=== PATIENT | male | born 1950 | race Caucasian/White ===

== ENCOUNTER 2019-06-18 19:51 | Inpatient (IN) ==
[2019-06-18 20:18] LABS: Basophils # 0.1 10*3/uL (0.0-0.2); Basophils % 0.8 % (0.0-0.8); Eosinophils # 0.2 10*3/uL (0.0-0.87); Eosinophils % 2.1 % (0.00-10.9); Hematocrit 54.9 VOL% (42.0-52.0); Hemoglobin 18.7 GM/DL (14.0-18.0); Immature Granulocytes % 0.2 %; Immature Granulocytes Absolute 0.02 #; Lymphocytes # 3.9 10*3/uL (1.4-4.0); Lymphocytes % 35.8 % (21.2-54.2); Mean Corpuscular HGB Conc 34.1 GM/DL (32-36); Mean Corpuscular Volume 84.9 FL (87-102); Mean Platelet Volume 10.2 FL (9.6-12.0); Monocytes % 6.9 % (1.7-12.7); Neutrophils % 54.2 % (38.7-73.9); Platelet Count 278 T/CUMM (130-400); Red Blood Count 6.47 MC/CUMM (3.8-5.5); Red Cell Distribution Width 12.7 % (9.3-17.3); White Blood Count 10.9 T/CUMM (4-12)
[2019-06-18 20:37] LABS: Albumin 3.8 G/DL (3.4-5.0); Bilirubin,Total 0.6 MG/DL (0.2-1.0); Calcium 9.3 MG/DL (8.5-10.1); Osmolality,Calculated 286.5 MOS/KG (273-304); Total Protein 7.8 G/DL (6.4-8.3)
[2019-06-18] MEDS ORDERED: ASPIRIN EC 325 MG TABLET PO STA (20:42)
[2019-06-18] MEDS ORDERED: NITROGLYCERIN SL 0.4 MG TABLET SL STA (20:42)
[2019-06-18] MEDS ORDERED: ENOXAPARIN 30 MG/0.3 ML SYRINGE SUBCUT STA (21:12)
[2019-06-18] MEDS ORDERED: NICOTINE 21 MG/24 HR PATCH TRANSDERM PRN (21:31)
[2019-06-18] MEDS ORDERED: ACETAMINOPHEN 325 MG TABLET PO PRN (21:31)
[2019-06-18] MEDS ORDERED: ONDANSETRON 4 MG/2 ML VIAL IV PRN (21:31)
[2019-06-18] MEDS ORDERED: diphenhydrAMINE CAP 25 MG CAPSULE PO PRN (21:31)
[2019-06-18] MEDS ORDERED: BISACODYL 5 MG TABLET PO PRN (21:31)
[2019-06-18] MEDS ORDERED: traZODone 50 MG TABLET PO PRN (21:31)
[2019-06-18] MEDS ORDERED: ENOXAPARIN 100 MG/ML SYRINGE SUBCUT ONE (21:56)
[2019-06-18] MEDS ORDERED: ENOXAPARIN 80 MG/0.8 ML SYRINGE SUBCUT STA (21:57)
[2019-06-18] MEDS ORDERED: ENOXAPARIN 100 MG/ML SYRINGE SUBCUT STA (21:58)
[2019-06-18] MEDS ORDERED: SODIUM CHLORIDE 0.9% 1,000 ML IV SCH (22:00)
[2019-06-18 22:15] LABS: Risk Ratio 5.65; Thyroid Stimulating Hormone 2.57 uIU/ml (0.358-3.74); VLDL CHOLESTEROL 30.4 MG/DL
[2019-06-18] MEDS: ATORVASTATIN 40 MG TABLET PO SCH (23:35)
[2019-06-19] MEDS: MORPHINE 4 MG/1 ML VIAL IV PRN ×2 (01:35→06:21)
[2019-06-19] MEDS ORDERED: HEPARIN 5,000 UNIT/1 ML VIAL IV PRN (04:15)
[2019-06-19] MEDS ORDERED: HEPARIN DRIP 25,000 UNITS/500 ML PREMIX IV SCH (04:30)
[2019-06-19] MEDS ORDERED: CLOPIDOGREL 300 MG TABLET PO ONE (05:00)
[2019-06-19] MEDS ORDERED: ASPIRIN 325 MG TABLET PO SCH (09:00)
[2019-06-19] MEDS ORDERED: NITROGLYCERIN SL 0.4 MG TABLET SL ONE ×2 (09:05→11:25)
[2019-06-19] MEDS ORDERED: NITROGLYCERIN SL 0.4 MG TABLET SL PRN (09:09)
[2019-06-19] MEDS: PANTOPRAZOLE 40 MG TABLET PO SCH (09:48)
[2019-06-19] MEDS ORDERED: ENOXAPARIN 80 MG/0.8 ML SYRINGE SUBCUT SCH (10:00)
[2019-06-19] MEDS ORDERED: MAGNESIUM SULF RIDER 2 GM in PREMIX 1 EACH IV PRN (10:54)
[2019-06-19] MEDS ORDERED: POTASSIUM CHLORIDE RIDER 10 MEQ in PREMIX 1 EACH IV PRN (10:54)
[2019-06-19] MEDS ORDERED: HEPARIN/NACL 0.9% 2 UNITS/ML 1,000 ML IV ONE (11:00)
[2019-06-19] MEDS ORDERED: LIDOCAINE 1% 20 ML VIAL ONE (11:03)
[2019-06-19] MEDS ORDERED: fentaNYL 100 MCG/2 ML VIAL ONE (11:05)
[2019-06-19] MEDS ORDERED: MIDAZOLAM 2 MG/2 ML VIAL ONE ×2 (11:05→11:35)
[2019-06-19] MEDS ORDERED: NITROGLYCERIN DRIP 50 MG/250 ML BOTTLE IV ONE (11:33)
[2019-06-19] MEDS ORDERED: EPTIFIBATIDE 20,000 MCG/10 ML VIAL ONE ×2 (11:35→11:42)
[2019-06-19] MEDS ORDERED: EPTIFIBATIDE 75 MG/100 ML BOTTLE IV ONE (11:35)
[2019-06-19] MEDS ORDERED: METOPROLOL TARTRATE 5 MG/5 ML VIAL IV ONE (11:39)
[2019-06-19 11:41] LABS: Apearance,Urine CLEAR (Clear); Bilirubin,Urine Negative (Negative); Blood, Urine Negative (Negative); Glucose,Urine (UA) 150 mg/dL (Negative); Ketones,Urine Negative (Negative); Mucus,Urine Occasional /LPF (Occasional); Nitrite,Urine Negative (Negative); Protein,Urine Negative; RBC,Urine 3 /HPF (0-4); Urine Color Yellow (Yellow); Urine Specific Gravity 1.049 (1.001-1.035); WBC,Urine <1 /HPF (0-6)
[2019-06-19] MEDS ORDERED: HEPARIN 5,000 UNIT/1 ML VIAL ONE (11:42)
[2019-06-19 12:11] LABS: Barbiturates Screen,Urine Negative (Negative); Benzodiazepines Screen,Urine Negative (Negative); Cannabinoid Screen,Urine Negative (Negative); Opiate Screen,Urine Positive (Negative); Phencyclidine Screen,Urine Negative (Negative)
[2019-06-19] MEDS ORDERED: TICAGRELOR 90 MG TABLET ONE (12:17)
[2019-06-19] MEDS ORDERED: ZALEPLON 5 MG CAPSULE PO PRN (13:03)
[2019-06-19] MEDS ORDERED: ACETAMINOPHEN/CODEINE 300-30 MG TABLET PO PRN (13:03)
[2019-06-19 14:00] LABS: Apearance,Urine CLEAR (Clear); Bilirubin,Urine Negative (Negative); Blood, Urine Negative (Negative); Glucose,Urine (UA) 50 mg/dL (Negative); Ketones,Urine 5 mg/dL (Negative); Mucus,Urine Occasional /LPF (Occasional); Nitrite,Urine Negative (Negative); Protein,Urine Negative; RBC,Urine 1 /HPF (0-4); Squamous Epithelial Cell,Urine Occasional /HPF (0-10); Urine Color Yellow (Yellow); Urine Specific Gravity > 1.060 (1.001-1.035); WBC,Urine <1 /HPF (0-6)
[2019-06-19] MEDS: TICAGRELOR 90 MG TABLET PO SCH (21:29)
[2019-06-19] MEDS: METOPROLOL TARTRATE 50 MG TABLET PO SCH (21:29)
[2019-06-19] MEDS: ATORVASTATIN 40 MG TABLET PO SCH (21:29)
[2019-06-20 06:06] LABS: Basophils # 0.1 10*3/uL (0.0-0.2); Basophils % 0.6 % (0.0-0.8); Eosinophils # 0.2 10*3/uL (0.0-0.87); Eosinophils % 2.3 % (0.00-10.9); Hematocrit 47.1 VOL% (42.0-52.0); Hemoglobin 16.1 GM/DL (14.0-18.0); Immature Granulocytes % 0.7 %; Immature Granulocytes Absolute 0.07 #; Lymphocytes # 2.2 10*3/uL (1.4-4.0); Lymphocytes % 21.6 % (21.2-54.2); Mean Corpuscular HGB Conc 34.2 GM/DL (32-36); Mean Corpuscular Volume 86.3 FL (87-102); Mean Platelet Volume 10.3 FL (9.6-12.0); Monocytes % 11.4 % (1.7-12.7); Neutrophils % 63.4 % (38.7-73.9); Platelet Count 211 T/CUMM (130-400); Red Blood Count 5.46 MC/CUMM (3.8-5.5); Red Cell Distribution Width 13.2 % (9.3-17.3); White Blood Count 10.3 T/CUMM (4-12)
[2019-06-20 06:19] LABS: Calcium 8.2 MG/DL (8.5-10.1); Osmolality,Calculated 277.7 MOS/KG (273-304)
[2019-06-20] MEDS: PANTOPRAZOLE 40 MG TABLET PO SCH (08:47)
[2019-06-20] MEDS: ASPIRIN EC 81 MG TABLET PO SCH (08:47)
[2019-06-20] MEDS: METOPROLOL TARTRATE 50 MG TABLET PO SCH ×2 (08:47→21:21)
[2019-06-20] MEDS: TICAGRELOR 90 MG TABLET PO SCH ×2 (08:47→21:21)
[2019-06-20] MEDS: TAMSULOSIN 0.4 MG CAPSULE PO SCH (13:11)
[2019-06-20] MEDS: ATORVASTATIN 40 MG TABLET PO SCH (21:21)
[2019-06-21] MEDS ORDERED: METOPROLOL SUCCINATE XL 25 MG TABLET PO SCH (09:00)
[2019-06-21] MEDS: PANTOPRAZOLE 40 MG TABLET PO SCH (11:00)
[2019-06-21] MEDS: TICAGRELOR 90 MG TABLET PO SCH (11:00)
[2019-06-21] MEDS: ASPIRIN EC 81 MG TABLET PO SCH (11:00)
[2019-06-21] MEDS: TAMSULOSIN 0.4 MG CAPSULE PO SCH (11:00)
[2019-06-21 12:27] VITALS: BP 125/94
== END 2019-06-21 12:20 | disposition home or self-care (01) | DRG 247 ==
LOC: N.ED 19:51 → SUATTDRO 21:39 → N.EDINP 21:39 → N.TELEN 22:24
PROVIDERS: ADMIT Family Medicine; ATTEND Internal Medicine
PROC: CLCCHCL (ICD-10-PCS; 2019-06-19 11:45)

== ENCOUNTER 2020-01-26 09:52 | Inpatient (IN) ==
[2020-01-26] MEDS ORDERED: SODIUM CHLORIDE 0.9% 1,000 ML IV STA (10:57)
[2020-01-26 11:01] LABS: Basophils % 0.2 % (0.0-0.8); Hematocrit 42.5 VOL% (42.0-52.0); Hemoglobin 13.9 GM/DL (14.0-18.0); Immature Granulocytes % 0.7 %; Immature Granulocytes Absolute 0.13 #; Lymphocytes # 1.1 10*3/uL (1.4-4.0); Lymphocytes % 5.8 % (21.2-54.2); Mean Corpuscular HGB Conc 32.7 GM/DL (32-36); Mean Corpuscular Volume 89.7 FL (87-102); Mean Platelet Volume 10.7 FL (9.6-12.0); Monocytes % 10.4 % (1.7-12.7); Neutrophils % 82.9 % (38.7-73.9); Platelet Count 153 T/CUMM (130-400); Red Blood Count 4.74 MC/CUMM (3.8-5.5); Red Cell Distribution Width 14.6 % (9.3-17.3); White Blood Count 18.5 T/CUMM (4-12)
[2020-01-26] MEDS ORDERED: cefTRIAXone 1,000 MG in SODIUM CHLORIDE 0.9% 100 ML IV STA (11:08)
[2020-01-26] MEDS ORDERED: ACETAMINOPHEN 500 MG TABLET PO STA (11:08)
[2020-01-26 11:26] LABS: Bilirubin,Total 1.8 MG/DL (0.2-1.0); Calcium 8.9 MG/DL (8.5-10.1); Osmolality,Calculated 272.4 MOS/KG (273-304); Total Protein 6.8 G/DL (6.4-8.3)
[2020-01-26 11:48] LABS: INR 1.3
[2020-01-26 12:25] LABS: Apearance,Urine Slightly Hazy (Clear); Bacteria,Urine Many /HPF (Few); Bilirubin,Urine Negative (Negative); Blood, Urine Moderate mg/dL (Negative); Glucose,Urine (UA) Negative (Negative); Ketones,Urine Negative (Negative); Mucus,Urine Moderate /LPF (Occasional); Nitrite,Urine Positive (Negative); Protein,Urine 30 MG/DL; RBC,Urine 3 /HPF (0-4); Urine Color Amber (Yellow); Urine Specific Gravity 1.019 (1.001-1.035); WBC,Urine 55 /HPF (0-6)
[2020-01-26] MEDS ORDERED: SODIUM CHLORIDE 0.9% 500 ML IV STA (12:49)
[2020-01-26] MEDS ORDERED: ONDANSETRON 4 MG/2 ML VIAL IV PRN (14:16)
[2020-01-26] MEDS ORDERED: GLUCAGON 1 MG VIAL IM PRN ×2 (14:16)
[2020-01-26] MEDS ORDERED: DEXTROSE 10% 250 ML BAG IV PRN (14:16)
[2020-01-26] MEDS ORDERED: DEXTROSE 50% 25 GM/50 ML VIAL IV PRN (14:16)
[2020-01-26] MEDS ORDERED: ACETAMINOPHEN 325 MG TABLET PO PRN (14:16)
[2020-01-26] MEDS ORDERED: SODIUM CHLORIDE 0.9% 700 ML IV SCH (14:30)
[2020-01-26] MEDS: INSULIN LISPRO 100 UNIT/ML SUBCUT SCH (20:50)
[2020-01-26] MEDS: TICAGRELOR 90 MG TABLET PO SCH (21:46)
[2020-01-26] MEDS: metFORMIN 500 MG TABLET PO SCH (21:46)
[2020-01-26] MEDS: ATORVASTATIN 40 MG TABLET PO SCH (21:46)
[2020-01-26] MEDS: ASPIRIN EC 81 MG TABLET PO SCH (21:46)
[2020-01-27 05:26] LABS: Basophils % 0.2 % (0.0-0.8); Eosinophils # 0.1 10*3/uL (0.0-0.87); Eosinophils % 0.5 % (0.00-10.9); Hematocrit 38.9 VOL% (42.0-52.0); Hemoglobin 12.9 GM/DL (14.0-18.0); Immature Granulocytes % 0.9 %; Immature Granulocytes Absolute 0.12 #; Lymphocytes # 1.3 10*3/uL (1.4-4.0); Lymphocytes % 9.7 % (21.2-54.2); Mean Corpuscular HGB Conc 33.2 GM/DL (32-36); Mean Corpuscular Volume 87.8 FL (87-102); Mean Platelet Volume 11.2 FL (9.6-12.0); Neutrophils % 80.7 % (38.7-73.9); Platelet Count 107 T/CUMM (130-400); Red Blood Count 4.43 MC/CUMM (3.8-5.5); Red Cell Distribution Width 14.4 % (9.3-17.3); White Blood Count 13.1 T/CUMM (4-12)
[2020-01-27 05:48] LABS: Calcium 7.9 MG/DL (8.5-10.1); Osmolality,Calculated 280.4 MOS/KG (273-304)
[2020-01-27] MEDS: INSULIN LISPRO 100 UNIT/ML SUBCUT SCH ×5 (08:04→21:24)
[2020-01-27] MEDS: METOPROLOL SUCCINATE XL 25 MG TABLET PO SCH (08:36)
[2020-01-27] MEDS: cefTRIAXone 1,000 MG in SYRINGE 1 EACH IV SCH (08:37)
[2020-01-27] MEDS: metFORMIN 500 MG TABLET PO SCH ×2 (08:37→21:23)
[2020-01-27] MEDS: TICAGRELOR 90 MG TABLET PO SCH ×2 (08:37→21:23)
[2020-01-27] MEDS ORDERED: TAMSULOSIN 0.4 MG CAPSULE PO SCH (09:00)
[2020-01-27] MEDS: TAMSULOSIN 0.4 MG CAPSULE PO SCH (21:23)
[2020-01-27] MEDS: ASPIRIN EC 81 MG TABLET PO SCH (21:23)
[2020-01-27] MEDS: ATORVASTATIN 40 MG TABLET PO SCH (21:23)
[2020-01-28 06:19] LABS: Basophils % 0.4 % (0.0-0.8); Eosinophils # 0.4 10*3/uL (0.0-0.87); Eosinophils % 4.6 % (0.00-10.9); Hematocrit 38.6 VOL% (42.0-52.0); Hemoglobin 12.8 GM/DL (14.0-18.0); Immature Granulocytes % 0.4 %; Immature Granulocytes Absolute 0.04 #; Lymphocytes # 1.2 10*3/uL (1.4-4.0); Lymphocytes % 12.6 % (21.2-54.2); Mean Corpuscular HGB Conc 33.2 GM/DL (32-36); Mean Corpuscular Volume 88.1 FL (87-102); Mean Platelet Volume 10.7 FL (9.6-12.0); Monocytes % 15.8 % (1.7-12.7); Neutrophils % 66.2 % (38.7-73.9); Platelet Count 126 T/CUMM (130-400); Red Blood Count 4.38 MC/CUMM (3.8-5.5); Red Cell Distribution Width 14.4 % (9.3-17.3); White Blood Count 9.5 T/CUMM (4-12)
[2020-01-28 06:33] LABS: Osmolality,Calculated 275.7 MOS/KG (273-304)
[2020-01-28 06:40] LABS: Atypical Lymphocytes Few; Band Neutrophils 3 % (0-10); Eosinophils 5 % (0-10); Hypochromasia 1+; Lymphocytes 12 % (20-55); Microcytosis Slight; Platelet Estimate Adequate; Segmented Neutrophils 71 % (50-85); Total Cells Counted 100
[2020-01-28] MEDS: cefTRIAXone 1,000 MG in SYRINGE 1 EACH IV SCH (10:05)
[2020-01-28] MEDS: INSULIN LISPRO 100 UNIT/ML SUBCUT SCH ×4 (10:06→20:39)
[2020-01-28] MEDS: TICAGRELOR 90 MG TABLET PO SCH ×2 (10:06→20:37)
[2020-01-28] MEDS: METOPROLOL SUCCINATE XL 25 MG TABLET PO SCH (10:06)
[2020-01-28] MEDS: TAMSULOSIN 0.4 MG CAPSULE PO SCH ×2 (10:06→20:37)
[2020-01-28] MEDS: metFORMIN 500 MG TABLET PO SCH ×2 (10:06→20:41)
[2020-01-28] MEDS: ATORVASTATIN 40 MG TABLET PO SCH (20:37)
[2020-01-28] MEDS: ASPIRIN EC 81 MG TABLET PO SCH (20:37)
[2020-01-29 06:42] LABS: Basophils % 0.5 % (0.0-0.8); Eosinophils # 0.6 10*3/uL (0.0-0.87); Eosinophils % 6.9 % (0.00-10.9); Hematocrit 35.7 VOL% (42.0-52.0); Hemoglobin 12.1 GM/DL (14.0-18.0); Immature Granulocytes % 0.5 %; Immature Granulocytes Absolute 0.04 #; Lymphocytes # 1.2 10*3/uL (1.4-4.0); Lymphocytes % 13.8 % (21.2-54.2); Mean Corpuscular HGB Conc 33.9 GM/DL (32-36); Mean Corpuscular Volume 85.6 FL (87-102); Mean Platelet Volume 10.7 FL (9.6-12.0); Neutrophils % 65.3 % (38.7-73.9); Platelet Count 154 T/CUMM (130-400); Red Blood Count 4.17 MC/CUMM (3.8-5.5); Red Cell Distribution Width 14.8 % (9.3-17.3); White Blood Count 8.5 T/CUMM (4-12)
[2020-01-29 07:08] LABS: Calcium 8.2 MG/DL (8.5-10.1); Osmolality,Calculated 272.8 MOS/KG (273-304)
[2020-01-29] MEDS: INSULIN LISPRO 100 UNIT/ML SUBCUT SCH ×2 (08:14→12:18)
[2020-01-29] MEDS: cefTRIAXone 1,000 MG in SYRINGE 1 EACH IV SCH (09:07)
[2020-01-29] MEDS: TICAGRELOR 90 MG TABLET PO SCH (09:08)
[2020-01-29] MEDS: METOPROLOL SUCCINATE XL 25 MG TABLET PO SCH (09:08)
[2020-01-29] MEDS: metFORMIN 500 MG TABLET PO SCH (09:08)
[2020-01-29] MEDS: TAMSULOSIN 0.4 MG CAPSULE PO SCH (09:08)
[2020-01-29 12:50] VITALS: BP 117/87
== END 2020-01-29 12:55 | disposition home or self-care (01) | DRG 698 ==
LOC: N.ED 09:52 → N.EDINP 14:16 → N.3E 19:14
PROVIDERS: ADMIT Internal Medicine Geriatric Medicine; ATTEND Internal Medicine Geriatric Medicine